=== PATIENT | male | born 1985 | race Asian ===

== ENCOUNTER 2019-03-01 23:58 | Emergency (ER) | payer MEDICAID ==
[~2019-03-01] VITALS: Ht 167.6 cm; Wt 92.0 kg
[2019-03-02] MEDS ORDERED: diphenhydrAMINE 25mg capsule PO ONE (00:25)
[2019-03-02] MEDS ORDERED: methylPREDNISolone sod succ 125mg/2ml vial IM ONE (00:25)
--- NOTE | 2019-03-02 00:39 | NUR ---
PT GIVEN BENEDRYL TABS AND SOLUMEDROL IM. FRIENDS AT BEDSIDE.
[2019-03-02] MEDS ORDERED: epiNEPHrine 1 mg/ml inj IM STA (01:02)
[2019-03-02] MEDS ORDERED: ondansetron 4mg rapidly disintigrating tab PO ONE (01:05)
[2019-03-02 01:43] VITALS: BP 131/75
--- NOTE | 2019-03-02 01:44 | NUR ---
PT REPORTS MUCH IMPROVEMENT IN HIS BREATHING AFTER THE EPINEPHRIN GIVEN. PT REPORTS THE STEROID AND BENEDRYL DID NOT HELP AT ALL , IN FACT HE FELT SYMPTOMS KEPT GETTING WORSE.
--- NOTE | 2019-03-02 01:44 | NUR ---
DR GRANT IN TO REEVALUATE PT. FRIENDS REMAINS AT [facility]
[2019-03-02] MEDS ORDERED: EPIN0.3P3 IM (01:48)
[2019-03-02] MEDS ORDERED: PRED20TA PO (01:48)
== END 2019-03-02 02:03 | disposition home or self-care (01) ==
LOC: ER 23:59
DX: R21 Rash and other nonspecific skin eruption (principal); T78.3XXA Angioneurotic edema, initial encounter; R20.2 Paresthesia of skin; E11.9 Type 2 diabetes mellitus without complications; Z79.899 Other long term (current) drug therapy; Y92.89 Other specified places as the place of occurrence of the external cause
CPT/HCPCS: 96372; 99291; J0171; J2930; Q0163

== ENCOUNTER 2019-03-02 22:31 | Emergency (ER) | payer MEDICAID ==
[~2019-03-02] VITALS: Ht 167.6 cm; Wt 92.0 kg
[~2019-03-02 22:31] MED LIST: EPIN0.3P3 IM; PRED20TA PO
[2019-03-02 22:34] VITALS: BP 130/82
--- NOTE | 2019-03-02 22:48 | NUR ---
encouraged pt to try to figure out what is new in his life, perfumes/dyes/sprays/food/drink etc.
[2019-03-02] MEDS ORDERED: epiNEPHrine 1 mg/ml inj IM STA (23:29)
[2019-03-02] MEDS ORDERED: diphenhydrAMINE 25mg capsule PO ONE (23:30)
== END 2019-03-03 01:47 | disposition home or self-care (01) ==
LOC: ER 03-03 00:46
DX: R21 Rash and other nonspecific skin eruption (principal); T78.3XXA Angioneurotic edema, initial encounter; E11.9 Type 2 diabetes mellitus without complications; Z79.899 Other long term (current) drug therapy; Y92.89 Other specified places as the place of occurrence of the external cause
CPT/HCPCS: 96372; 99283; J0171; Q0163

== ENCOUNTER 2019-03-03 05:21 | Emergency (ER) | payer MEDICAID ==
[~2019-03-03] VITALS: Ht 167.6 cm; Wt 92.0 kg
[2019-03-03] MEDS ORDERED: dexamethasone 4mg tablet PO ONE (06:15)
[2019-03-03] MEDS ORDERED: famotidine 10mg tablet PO ONE (06:15)
[2019-03-03] MEDS ORDERED: famotidine 20mg tablet PO ONE (06:20)
[2019-03-03 06:34] VITALS: BP 139/83
== END 2019-03-03 07:10 | disposition home or self-care (01) ==
LOC: ER 05:22
DX: T78.40XD Allergy, unspecified, subsequent encounter (principal); E11.9 Type 2 diabetes mellitus without complications; Z79.899 Other long term (current) drug therapy; X58.XXXD Exposure to other specified factors, subsequent encounter
CPT/HCPCS: 99283